=== PATIENT | female | born 1985 | race Two or more races ===

== ENCOUNTER → 2023-05-19 | Emergency (ER) | payer MEDICAID ==
[~2023-05-19] VITALS: Ht 170.2 cm; Wt 63.5 kg
[2023-05-19 18:58] VITALS: BP 110/80; TEMP 98.3; O2SAT 98
== END | disposition left against medical advice (07) ==
LOC: ER 19:30
DX: M25.531 Pain in right wrist (principal); Z53.21 Procedure and treatment not carried out due to patient leaving prior to being seen by health care provider; V89.2XXA Person injured in unspecified motor-vehicle accident, traffic, initial encounter; Y93.89 Activity, other specified; Y92.89 Other specified places as the place of occurrence of the external cause; Y99.8 Other external cause status